=== PATIENT | female | born 1980 | race African-American/Black ===

== ENCOUNTER → 2016-07-12 | Outpatient (CLI) | payer MEDICAID | END | disposition home or self-care (01) | LOC: MW.RT 19:27 | PROVIDERS: ATTEND Family Medicine | DX: G47.30 Sleep apnea, unspecified (principal) | CPT/HCPCS: 95810 ==

== ENCOUNTER → 2016-08-25 | Outpatient (CLI) | payer MEDICAID | LOC: MW.CHOBGYN 13:44 | PROVIDERS: ATTEND Nurse Practitioner Women's Health | DX: R10.2 Pelvic and perineal pain (principal) | CPT/HCPCS: 36415; 81001; 81025; 85025 ==

== ENCOUNTER → 2016-08-28 | Outpatient (CLI) | payer MEDICAID ==
--- NOTE | 2016-08-28 16:35 | US ---
EXAMINATION: Transabdominal and transvaginal pelvic ultrasound HISTORY: Pain COMPARISON: None TECHNIQUE: Grayscale and color Doppler images obtained. FINDINGS: The uterus appears normal in size, contour, and echogenicity without a focal uterine mass. Endometrial stripe measures 6 mm. There are likely a few small fibroids along the posterior aspect of the fundus measuring up to approximately 1.3 cm. Endometrial stripe thickness measures 6 mm. Both the left and right ovaries are normal in size, contour, and echogenicity demonstrating normal c olor and spectral Doppler flow. Small follicles are noted. No adnexal masses. IMPRESSION: 1. Several small fibroids, otherwise unremarkable pelvic ultrasound.
== END ==
LOC: MW.US 11:07
PROVIDERS: ATTEND Nurse Practitioner Women's Health
DX: R10.2 Pelvic and perineal pain (principal); D25.9 Leiomyoma of uterus, unspecified
CPT/HCPCS: 76830; 76830-26

== ENCOUNTER 2016-09-19 17:11 | Emergency (ER) | payer MEDICAID ==
[2016-09-19] MEDS ORDERED: Ketorolac 30 MG/ML SDV IVPUSH ONE (17:59)
[2016-09-19] MEDS ORDERED: Sodium Chloride 0.9% 10 ML Syringe FLUSH PRN (17:59)
[2016-09-19] MEDS ORDERED: Sodium Chloride 0.9% 2.5 ML Syringe FLUSH PRN (17:59)
[2016-09-19] MEDS ORDERED: Sodium Chloride 0.9% 500 ML IV SCH (18:00)
--- NOTE | 2016-09-19 18:04 | EDM.PDOC ---
ED HPI GENERAL MEDICAL PROBLEM - General Chief Complaint: Abdominal Pain Stated Complaint: FIBROID PAIN Time Seen by Provider: 09/19/16 17:17 - History of Present Illness INITIAL COMMENTS - FREE TEXT/NARRATIVE: HISTORY AND PHYSICAL: History of present illness: The patient is a 36-year-old female with a history of hypertension who follows at [facility] and who also has been following with our map plotter Dr. bernabe for fibroids. The patient underwent a myomectomy on April 27 of this year for 1 large fibroid and the patient states that her pelvic pain has been constant both before the surgery and has continued after the surgery and never quite went away. She also states that Dr. Flores had to remove an IUD that was embedded and since that surgery she has been having regular periods with her last period on September 10. She says her periods last 5-7 days and initially are a light flow and then and with a heavy flow but they have been regular and consistent with this team. She is currently not having vaginal bleeding. She states that the pain since last year has been persistent in her pelvic area and although she was told that after the surgery it would improve it has not gone away. She states she has not seen Dr. Bernabe recently and overall was not particularly happy with the care she was given but she does not want to see any of the physicians at [facility]. She has not seen her provider in the clinic, [facility], but she has seen one of the mid level providers in our clinic on August 25 and underwent a pelvic ultrasound on August 28 of this year. Per those results she had normal ovaries normal endometrial stripe and uterus and had several small fibroids measuring up to 1.3 cm along the posterior aspect of the fundus of the uterus. There were no other abnormalities. Patient's been using ibuprofen 800 mg for pain and says it is not improved and that it is in the pelvis and radiates bilaterally into her back as well as to her vagina and rectum. She has discomfort with urination and she has discomfort with sitting. She is having normal bowel movements. She has no upper abdominal pain no flank or back pain and no other systemic complaints such as fever chills nausea or vomiting. Review of systems: As per history of present illness and below otherwise all systems reviewed and negative. Past medical history: As per history of present illness and as reviewed below otherwise noncontributory. Surgical history: As per history of present illness and as reviewed below otherwise noncontributory. Social history: No reported history of drug or alcohol abuse. Family history: As per history of present illness and as reviewed below otherwise noncontributory. Physical exam: Gen.: Well-developed overweight female who is nontoxic and moves easily in the ED but slowly. She looks uncomfortable. Vital signs of the note by me. HEENT: Atraumatic, normocephalic, pupils reactive, negative for conjunctival pallor or scleral icterus, mucous membranes moist, throat clear, neck supple, nontender, trachea midline. Lungs: Clear to auscultation, breath sounds equal bilaterally, chest nontender. Heart: S1S2, regular, negative for clicks, rubs, or JVD. Abdomen: Soft, nondistended, mild tenderness in the mid right left pelvic areas without localization right or left. There is no rebound or guarding and bowel sounds are hypoactive. Negative for masses or hepatosplenomegaly. Negative for costovertebral tenderness. Pelvis: Stable nontender. Genitourinary: Bimanual pelvic exam is difficult due to patient's body habitus and the uterus feels somewhat bulky and rotated to the left but there is no vaginal bleeding and there is tenderness on the abdominal component of this exam. There is no gross adnexal tenderness appreciated. Rectal: Tone is normal and there is no masses or fullness appreciated in the anterior rectal wall adjacent to the vagina. Extremities: Atraumatic, negative for cords or calf pain. Neurovascular unremarkable. Neuro: Awake, alert, oriented. Cranial nerves II through XII unremarkable. Cerebellum unremarkable. Motor and sensory unremarkable throughout. Exam nonfocal. Diagnostics: Patient's pelvic ultrasound from August 28 was reviewed as above CBC CMP UA UCG CT scan of the abdomen and pelvis Therapeutics: Toradol IV fluids Patient states she drove herself here and cannot get a ride so she can receive something stronger in the ED. 2006: Case was discussed with Dr. King who does not feel that this is likely appendicitis in light of the CT scan and my clinical findings. I agree and have discussed this conversation with the patient 2011: Case was discussed with ; he states he is happy to see her in the clinic and I queried him if I should repeat the pelvic ultrasound as the one done on August 28 was 22 days ago to reevaluate the left and right adnexal low- density structures. He states that he would not repeat the ultrasound as it was only done 3 weeks ago and I discussed this conversation with the patient as well. I've advised her to have follow-up with him in his clinic as well as with her primary care provider and I will prescribe pain medications in the interim. Impression: Pelvic pain acute on chronic etiology unclear Definitive disposition and diagnosis as appropriate pending reevaluation and review of above. abdomen Pain Score (Numeric/FACES): 8 - Related Data Allergies Allergy/AdvReac Type Severity Reaction Status Date / Time No Known Allergies Allergy Verified 09/19/16 17:42 Home Meds: Home Meds ClonazePAM [KlonoPIN] 0.5 tab PO BID PRN 12/15/14 [History] Desonide [Desowen] 1 dose TOP ASDIRECTED 04/24/16 [History] Desvenlafaxine Succinate [Pristiq] 100 mg PO DAILY 04/24/16 [History] Hydrocodone/Acetaminophen [Hydrocodon-Acetaminophn 10-325] 1 tab PO ASDIRECTED PRN 04/24/16 [History] Ibuprofen 1 tab PO DAILY 04/24/16 [History] LORazepam 1 tab PO DAILY PRN 04/24/16 [History] Lubiprostone [Amitiza] 1 cap PO BID 04/24/16 [History] Methimazole 1 tab PO DAILY 04/24/16 [History] Propranolol HCl 1 tab PO QID 04/24/16 [History] cloNIDine HCl [Catapres] 0.1 mg PO BID 04/24/16 [History] cloNIDine HCl [Catapres] 1 tab PO DAILY PRN 05/21/16 [History] lamoTRIgine [Lamotrigine] 1 tab PO DAILY 05/21/16 [History] predniSONE [Prednisone] 1 tab PO ASDIRECTED 05/21/16 [History] Past Medical History - Past Health History Medical/Surgical History: Denies Medical/Surgical History Other HEENT History: wears glasses Cardiovascular 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: Hypertension Respiratory 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: None Other Respiratory History: does no use CPAP Gastrointestinal 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: None Genitourinary 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: None SOCIAL SERVICES AIDE 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: None Other OB/BYN History: uterine fibroids Musculoskeletal 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: None Neurological 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: None Psychiatric 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: Anxiety, Depression Endocrine/Metabolic 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: Hyperthyroidism, Obesity/BMI 30+ Other Endocrine/Metabolic History: Graves disease Hematologic 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: None Immunologic 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: None Oncologic (Cancer) 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: None Dermatologic 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: None - Infectious Disease History Infectious Disease 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: Chicken Pox - Past Surgical History Head Surgeries/Procedures: Reports: None HEENT Surgical 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: Tonsillectomy Respiratory Surgical 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: None GI Surgical 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: None Female Surgical 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: Other (See Below) Other Female Surgeries/Procedures: myomectomy Endocrine Surgical 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: None Neurological Surgical 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: None Musculoskeletal Surgical 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: None Oncologic Surgical 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: None Dermatological Surgical 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: None Social & Family History - Family History Family Medical History: Noncontributory Cardiac: Reports: CAD - Tobacco Use Smoking Status *Q: Never Smoker Used Tobacco, but Quit: No Second Hand Smoke Exposure: No - Caffeine Use Caffeine Use: Reports: Soda - Recreational Drug Use Recreational Drug Use: No Drug Use in Last 12 Months: No ED ROS GENERAL - Review of Systems Review Of Systems: ROS reveals no pertinent complaints other than HPI. ED EXAM, GENERAL - Physical Exam Exam: See Below (See dictation) Course - Vital Signs Last Recorded V/S: Last Vital Signs Temp 37.1 C 09/19/16 19:28 Pulse 69 09/19/16 19:28 Resp 16 09/19/16 19:28 BP 137/80 09/19/16 19:28 Pulse Ox 98 09/19/16 19:28 - Orders/Labs/Meds Orders: Active Orders 24 hr Category Date Time Status Abdomen Pelvis w Cont [CT] Stat Exams 09/19/16 17:59 Taken Sodium Chloride 0.9% [Normal Saline] 500 ml Med 09/19/16 18:00 Active IV STAT Sodium Chloride 0.9% [Saline Flush] Med 09/19/16 17:59 Active 10 ml FLUSH ASDIRECTED PRN Sodium Chloride 0.9% [Saline Flush] Med 09/19/16 17:59 Active 2.5 ml FLUSH ASDIRECTED PRN Saline Lock Insert [OM.PC] Stat Oth 09/19/16 17:59 Ordered Medication Orders Sodium Chloride (Normal Saline) 500 mls @ 999 mls/hr IV STAT ESTEVAN Last Admin: 09/19/16 18:10 Dose: 999 mls/hr Sodium Chloride (Saline Flush) 10 ml FLUSH ASDIRECTED PRN PRN Reason: Keep Vein Open Last Admin: 09/19/16 18:11 Dose: 10 ml Sodium Chloride (Saline Flush) 2.5 ml FLUSH ASDIRECTED PRN PRN Reason: Keep Vein Open Last Admin: 09/19/16 18:11 Dose: 2.5 ml Labs: Laboratory Tests 09/19/16 09/19/16 09/19/16 Range/Units 17:54 17:54 18:06 WBC 16.49 H (4.0-11.0) K/uL RBC 4.43 (4.30-5.90) M/uL Hgb 12.6 (12.0-16.0) g/dL Hct 37.5 (36.0-46.0) % MCV 84.7 (80.0-98.0) fL MCH 28.4 (27.0-32.0) pg MCHC 33.6 (31.0-37.0) g/dL RDW Std Deviation 44.5 (28.0-62.0) fl RDW Coeff of Eduardo 14 (11.0-15.0) % Plt Count 377 (150-400) K/uL MPV 9.70 (7.40-12.00) fL Neut % (Auto) 66.5 (48.0-80.0) % Lymph % (Auto) 26.4 (16.0-40.0) % Stevens % (Auto) 6.5 (0.0-15.0) % Eos % (Auto) 0.5 (0.0-7.0) % Baso % (Auto) 0.1 (0.0-1.5) % Neut # (Auto) 11.0 H (1.4-5.7) K/uL Lymph # (Auto) 4.4 H (0.6-2.4) K/uL Stevens # (Auto) 1.1 H (0.0-0.8) K/uL Eos # (Auto) 0.1 (0.0-0.7) K/uL Baso # (Auto) 0.0 (0.0-0.1) K/uL Nucleated RBC % 0.0 /100WBC Nucleated RBCs # 0 K/uL Sodium (136-146) mmol/L Potassium (3.5-5.1) mmol/L Chloride (98-110) mmol/L Carbon Dioxide (21-31) mmol/L BUN (6.0-23.0) mg/dL Creatinine (0.6-1.5) mg/dL Est Cr Clr Drug Dosing mL/min Estimated GFR (MDRD) ml/min Glucose (60-110) mg/dL Calcium (8.8-10.8) mg/dL Total Bilirubin (0.1-1.5) mg/dL AST (5-40) IU/L ALT (8-54) IU/L Alkaline Phosphatase (40-150) Total Protein (6.0-8.0) g/dL Albumin (3.5-5.0) g/dL Globulin (2.0-3.5) g/dL Albumin/Globulin Ratio (1.3-2.8) Urine Color YELLOW Urine Appearance CLEAR Urine pH 5.5 (5.0-8.0) Ur Specific Blakeslee 1.025 (1.001-1.035) Urine Protein NEGATIVE (NEGATIVE) mg/dL Urine Glucose (UA) NEGATIVE (NEGATIVE) mg/dL Urine Ketones NEGATIVE (NEGATIVE) mg/dL Urine Occult Blood NEGATIVE (NEGATIVE) Urine Nitrite NEGATIVE (NEGATIVE) Urine Bilirubin NEGATIVE (NEGATIVE) Urine Urobilinogen 0.2 (<2.0) EU/dL Ur Leukocyte Esterase NEGATIVE (NEGATIVE) Urine RBC 0-1 (0-2/HPF) Urine WBC 0-2 (0-5/HPF) Ur Epithelial Cells FEW (NONE-FEW) Urine Bacteria FEW (NEGATIVE) Urine HCG, Qual NEGATIVE (NEGATIVE) 09/19/16 Range/Units 18:06 WBC (4.0-11.0) K/uL RBC (4.30-5.90) M/uL Hgb (12.0-16.0) g/dL Hct (36.0-46.0) % MCV (80.0-98.0) fL MCH (27.0-32.0) pg MCHC (31.0-37.0) g/dL RDW Std Deviation (28.0-62.0) fl RDW Coeff of Eduardo (11.0-15.0) % Plt Count (150-400) K/uL MPV (7.40-12.00) fL Neut % (Auto) (48.0-80.0) % Lymph % (Auto) (16.0-40.0) % Stevens % (Auto) (0.0-15.0) % Eos % (Auto) (0.0-7.0) % Baso % (Auto) (0.0-1.5) % Neut # (Auto) (1.4-5.7) K/uL Lymph # (Auto) (0.6-2.4) K/uL Stevens # (Auto) (0.0-0.8) K/uL Eos # (Auto) (0.0-0.7) K/uL Baso # (Auto) (0.0-0.1) K/uL Nucleated RBC % /100WBC Nucleated RBCs # K/uL Sodium 138 (136-146) mmol/L Potassium 4.0 (3.5-5.1) mmol/L Chloride 109 (98-110) mmol/L Carbon Dioxide 19 L (21-31) mmol/L BUN 11 (6.0-23.0) mg/dL Creatinine 0.7 (0.6-1.5) mg/dL Est Cr Clr Drug Dosing 117.23 mL/min Estimated GFR (MDRD) > 60.0 ml/min Glucose 86 (60-110) mg/dL Calcium 8.6 L (8.8-10.8) mg/dL Total Bilirubin 0.6 (0.1-1.5) mg/dL AST 13 (5-40) IU/L ALT 11 (8-54) IU/L Alkaline Phosphatase 77 (40-150) Total Protein 7.8 (6.0-8.0) g/dL Albumin 4.3 (3.5-5.0) g/dL Globulin 3.5 (2.0-3.5) g/dL Albumin/Globulin Ratio 1.2 L (1.3-2.8) Urine Color Urine Appearance Urine pH (5.0-8.0) Ur Specific Blakeslee (1.001-1.035) Urine Protein (NEGATIVE) mg/dL Urine Glucose (UA) (NEGATIVE) mg/dL Urine Ketones (NEGATIVE) mg/dL Urine Occult Blood (NEGATIVE) Urine Nitrite (NEGATIVE) Urine Bilirubin (NEGATIVE) Urine Urobilinogen (<2.0) EU/dL Ur Leukocyte Esterase (NEGATIVE) Urine RBC (0-2/HPF) Urine WBC (0-5/HPF) Ur Epithelial Cells (NONE-FEW) Urine Bacteria (NEGATIVE) Urine HCG, Qual (NEGATIVE) Meds: Medications Generic Name Dose Route Start Last Admin Trade Name Freq PRN Reason Stop Dose Admin Sodium Chloride 500 mls @ 999 mls/hr 09/19/16 18:00 09/19/16 18:10 Normal Saline IV 999 mls/hr STAT ESTEVAN Administration Sodium Chloride 10 ml 09/19/16 17:59 09/19/16 18:11 Saline Flush FLUSH 10 ml ASDIRECTED PRN Administration Keep Vein Open Sodium Chloride 2.5 ml 09/19/16 17:59 09/19/16 18:11 Saline Flush FLUSH 2.5 ml ASDIRECTED PRN Administration Keep Vein Open Discontinued Medications Generic Name Dose Route Start Last Admin Trade Name Freq PRN Reason Stop Dose Admin Iopamidol 100 ml 09/19/16 18:40 Isovue Multipack-370 (76%) IVPUSH 09/19/16 18:41 ONETIME STA Ketorolac Tromethamine 30 mg 09/19/16 17:59 09/19/16 18:10 Toradol IVPUSH 09/19/16 18:00 30 mg ONETIME ONE Administration Departure - Departure Time of Disposition: 20:34 Disposition: Home, Self-Care 01 Condition: Fair Clinical Impression: Pelvic pain - Discharge Information Referrals: Danuta Long DO [Primary Care Provider] - Forms: ED Department Discharge Additional Instructions: The following information is given to patients seen in the emergency department who are being discharged to home. This information is to outline your options for follow-up care. We provide all patients seen in our emergency department with a follow-up referral. The need for follow-up, as well as the timing and circumstances, are variable depending upon the specifics of your emergency department visit. If you don't have a primary care physician on staff, we will provide you with a referral. We always advise you to contact your personal physician following an emergency department visit to inform them of the circumstance of the visit and for follow-up with them and/or the need for any referrals to a consulting specialist. The emergency department will also refer you to a specialist when appropriate. This referral assures that you have the opportunity for followup care with a specialist. All of these measure are taken in an effort to provide you with optimal care, which includes your followup. Under all circumstances we always encourage you to contact your private physician who remains a resource for coordinating your care. When calling for followup care, please make the office aware that this follow-up is from your recent emergency room visit. If for any reason you are refused follow-up, please contact the [facility] emergency department at and ask to speak to the emergency department charge nurse. [facility] [address] [place] [address] [facility] [address] [place] [address] [place], [place] [id number] Please call and follow-up with in his clinic as we discussed and continue with your ibuprofen that you have and add new prescription for pain medication to be used as needed. Please also follow up with your provider at [facility] as we discussed. Return to ER as needed and as discussed - My Orders Last 24 Hours: My Active Orders 09/19/16 17:59 Abdomen Pelvis w Cont [CT] Stat Sodium Chloride 0.9% [Saline Flush] 10 ml FLUSH ASDIRECTED PRN Sodium Chloride 0.9% [Saline Flush] 2.5 ml FLUSH ASDIRECTED PRN Saline Lock Insert [OM.PC] Stat 09/19/16 18:00 Sodium Chloride 0.9% [Normal Saline] 500 ml IV STAT - Assessment/Plan Last 24 Hours: My Active Orders 09/19/16 17:59 Abdomen Pelvis w Cont [CT] Stat Sodium Chloride 0.9% [Saline Flush] 10 ml FLUSH ASDIRECTED PRN Sodium Chloride 0.9% [Saline Flush] 2.5 ml FLUSH ASDIRECTED PRN Saline Lock Insert [OM.PC] Stat 09/19/16 18:00 Sodium Chloride 0.9% [Normal Saline] 500 ml IV STAT
[2016-09-19 18:35] LABS: CHLORIDE,CL 109 mmol/L (98-110); SODIUM,NA 138 mmol/L (136-146)
[2016-09-19] MEDS ORDERED: Iopamidol 755 MG/ML 500 ML Multipack Bottle IVPUSH STA (18:40)
[2016-09-19 22:34] VITALS: BP 153/113
--- NOTE | 2016-09-20 10:31 | CT ---
EXAM DATE: 09/19/16 PATIENT'S AGE: 36 Patient: RAISA SANTOS Facility: [place], [place] Site . Site : 1980 Study: CT Abdomen/Pelvis [id number]/13/2017 7:14:08 PM Ordering Physician: Aurelio Venegas Final Report: INDICATION: Lower abdominal pain TECHNIQUE: CT abdomen and pelvis acquired with IV contrast. COMPARISON: None available FINDINGS: Lower chest: Unremarkable. Liver: Unremarkable. Spleen: Unremarkable. Pancreas: Unremarkable. Gallbladder and bile ducts: Unremarkable. Adrenal glands: Unremarkable. Kidneys: Unremarkable. GI tract: No bowel obstruction. The mid appendix is upper limits of normal in caliber, containing a luminal density, however the more distal appendix is normal in caliber and there are no significant periappendiceal changes to suggest appendicitis. Foci of intramural fat attenuation in the ascending colon , terminal ileum and rectal wall can be seen as sequelae of chronic inflammation , without significant bowel wall thickening appreciated at this time. Liquid stool within colonic segments suggestive of a diarrheal illness. Vascular structures: Unremarkable. Lymph nodes: Unremarkable. Miscellaneous: Possible trace fluid in the cul-de-sac. No free air. Pelvic Organs: No discrete ureteral or bladder abnormality seen. A 2.1 x 1.8 centimeter left adnexal, and a 1.8 x 1.8 centimeter right adnexal, low-density structures. Bones: Unremarkable for age. IMPRESSION: Borderline prominence of the mid appendix is likely related to luminal debris without definite findings of appendicitis. No evidence of diverticulitis or bowel obstruction. Liquid stool within colonic segments suggestive of a diarrheal illness. Correlate for enteritis. Adnexal low-density structures. Correlate with sonography. Dictated by Nicolás Weaver MD @ 09/19/2016 8:01:14 PM Dictated by: Nicolás Weaver MD @ 09/19/2016 20:01:18 (Electronic Signature) Report Signed by Proxy. CURTIS
== END 2016-09-19 20:50 | disposition home or self-care (01) ==
LOC: MW.ED 17:11
DX: R10.2 Pelvic and perineal pain (principal); I10 Essential (primary) hypertension; F41.9 Anxiety disorder, unspecified; F32.9 Major depressive disorder, single episode, unspecified; E66.9 Obesity, unspecified; E05.90 Thyrotoxicosis, unspecified without thyrotoxic crisis or storm; Z98.890 Other specified postprocedural states; Z79.899 Other long term (current) drug therapy
CPT/HCPCS: 36415; 74177; 80053; 81001; 81025; 85025; 96361; 99284; J1885; J7040; 96374

== ENCOUNTER 2017-02-22 17:31 | Emergency (ER) | payer MEDICAID ==
[2017-02-22 18:24] VITALS: BP 113/73
[2017-02-22] MEDS ORDERED: LORazepam 2 MG/ML SDV IVPUSH ONE (19:01)
[2017-02-22] MEDS ORDERED: Sodium Chloride 0.9% 1,000 ML IV ONE (19:01)
[2017-02-22] MEDS ORDERED: Ondansetron 4 MG/2 ML SDV IVPUSH ONE (19:01)
[2017-02-22] MEDS ORDERED: SUMAtriptan 6 MG/0.5 ML SDV SUBCUT ONE (19:02)
[2017-02-22] MEDS ORDERED: Ketorolac 30 MG/ML SDV IVPUSH ONE (19:12)
--- NOTE | 2017-02-22 19:12 | EDM.PDOC ---
<Chris Lino - Last Filed: 02/22/17 20:00> ED HPI GENERAL MEDICAL PROBLEM - General Chief Complaint: Headache Stated Complaint: MIGRAINE Time Seen by Provider: 02/22/17 19:00 Source of Information: Reports: Patient History Limitations: Reports: No Limitations - History of Present Illness INITIAL COMMENTS - FREE TEXT/NARRATIVE: History of present illness: [36-year-old female comes in complaining of migraine headache. Patient indicates that she has had a history of migraine but they're sporadic and infrequent and is been well since she had one area patient in case this is one of the bad ones but not before she is ever had.] Review of systems: As per history of present illness and below otherwise all systems reviewed and negative. Past medical history: As per history of present illness and as reviewed below otherwise noncontributory. Surgical history: As per history of present illness and as reviewed below otherwise noncontributory. Social history: No reported history of drug or alcohol abuse. Family history: As per history of present illness and as reviewed below otherwise noncontributory. Physical exam: HEENT: Atraumatic, normocephalic, pupils reactive, negative for conjunctival pallor or scleral icterus, mucous membranes moist, throat clear, neck supple, nontender, trachea midline. Lungs: Clear to auscultation, breath sounds equal bilaterally, chest nontender. Heart: S1S2, regular, negative for clicks, rubs, or JVD. Abdomen: Soft, nondistended, nontender. Negative for masses or hepatosplenomegaly. Negative for costovertebral tenderness. Pelvis: Stable nontender. Genitourinary: Deferred. Rectal: Deferred. Extremities: Atraumatic, negative for cords or calf pain. Neurovascular unremarkable. Neuro: Awake, alert, oriented. Cranial nerves II through XII unremarkable. Cerebellum unremarkable. Motor and sensory unremarkable throughout. Exam nonfocal. Patient eloped Diagnostics: [] Therapeutics: [IV fluid, Ativan,] Impression: [Migraine headache] Plan: [Patient eloped] Definitive disposition and diagnosis as appropriate pending reevaluation and review of above. Headache Pain Score (Numeric/FACES): 10 - Related Data Allergies Allergy/AdvReac Type Severity Reaction Status Date / Time acetaminophen [From Percocet] Allergy Hives Verified 02/22/17 18:12 oxycodone [From Percocet] Allergy Hives Verified 02/22/17 18:12 tylenol #4 Allergy Hives Uncoded 02/22/17 18:12 Home Meds: Home Meds ClonazePAM [KlonoPIN] 0.5 tab PO BID PRN 12/15/14 [History] Desonide [Desowen] 1 dose TOP ASDIRECTED 04/24/16 [History] Desvenlafaxine Succinate [Pristiq] 100 mg PO DAILY 04/24/16 [History] Hydrocodone/Acetaminophen [Hydrocodon-Acetaminophn 10-325] 1 tab PO ASDIRECTED PRN 04/24/16 [History] Ibuprofen 1 tab PO DAILY 04/24/16 [History] Lubiprostone [Amitiza] 1 cap PO BID 04/24/16 [History] Methimazole 1 tab PO DAILY 04/24/16 [History] Propranolol HCl 1 tab PO QID 04/24/16 [History] cloNIDine HCl [Catapres] 0.1 mg PO BID 04/24/16 [History] cloNIDine HCl [Catapres] 1 tab PO DAILY PRN 05/21/16 [History] Past Medical History - Past Health History Medical/Surgical History: Denies Medical/Surgical History Other HEENT History: wears glasses Cardiovascular 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: Hypertension Respiratory 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: None Other Respiratory History: does no use CPAP Gastrointestinal 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: None Genitourinary 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: None 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 Other OB/BYN History: uterine fibroids Musculoskeletal 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: None Neurological 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: None Psychiatric 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: Anxiety, Depression Endocrine/Metabolic 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: Hyperthyroidism, Obesity/BMI 30+ Other Endocrine/Metabolic History: Graves disease Hematologic 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: None Immunologic 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: None Oncologic (Cancer) 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: None Dermatologic 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: None - Infectious Disease History Infectious Disease 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: Chicken Pox - Past Surgical History Head Surgeries/Procedures: Reports: None HEENT Surgical 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: Tonsillectomy Respiratory Surgical 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: None GI Surgical 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: None Female Surgical 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: Other (See Below) Other Female Surgeries/Procedures: myomectomy Endocrine Surgical 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: None Neurological Surgical 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: None Musculoskeletal Surgical 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: None Oncologic Surgical 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: None Dermatological Surgical 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: None Social & Family History - Family History Family Medical History: Noncontributory Cardiac: Reports: CAD - Tobacco Use Smoking Status *Q: Never Smoker Used Tobacco, but Quit: No Second Hand Smoke Exposure: No - Caffeine Use Caffeine Use: Reports: None - Recreational Drug Use Recreational Drug Use: No Drug Use in Last 12 Months: No ED ROS GENERAL - Review of Systems Review Of Systems: See Below (See history of present illness) ED EXAM, GENERAL - Physical Exam Exam: See Below (See history of present illness) Course - Vital Signs Last Recorded V/S: Last Vital Signs Temp 36.3 C 02/22/17 18:21 Pulse 74 02/22/17 18:21 Resp 18 02/22/17 18:21 BP 113/73 02/22/17 18:21 Pulse Ox 97 02/22/17 18:21 - Orders/Labs/Meds Meds: Medications Discontinued Medications Generic Name Dose Route Start Last Admin Trade Name Freq PRN Reason Stop Dose Admin Sodium Chloride 1,000 mls @ 999 mls/hr 02/22/17 19:01 Normal Saline IV 02/22/17 20:01 STAT ONE Ketorolac Tromethamine 30 mg 02/22/17 19:12 Toradol IVPUSH 02/22/17 19:13 ONETIME ONE Lorazepam 1 mg 02/22/17 19:01 Ativan IVPUSH 02/22/17 19:02 ONETIME ONE Ondansetron HCl 8 mg 02/22/17 19:01 Zofran IVPUSH 02/22/17 19:02 ONETIME ONE Sumatriptan Succinate 6 mg 02/22/17 19:02 Imitrex SUBCUT 02/22/17 19:03 ONETIME ONE Departure - Departure Time of Disposition: 20:00 Disposition: Eloped 07 Condition: Good Clinical Impression: Migraine - Discharge Information Referrals: PCP,None [Primary Care Provider] - Forms: ED Department Discharge <Rubi Carey - Last Filed: 02/23/17 00:50> ED HPI GENERAL MEDICAL PROBLEM - History of Present Illness INITIAL COMMENTS - FREE TEXT/NARRATIVE: Please note that the patient eloped prior to getting any of the therapeutics listed above as well as other medications that were ordered.
== END 2017-02-22 20:00 | disposition left against medical advice (07) ==
LOC: MW.ED 17:31
DX: G43.909 Migraine, unspecified, not intractable, without status migrainosus (principal); I10 Essential (primary) hypertension; F32.9 Major depressive disorder, single episode, unspecified; E05.90 Thyrotoxicosis, unspecified without thyrotoxic crisis or storm; Z79.1 Long term (current) use of non-steroidal anti-inflammatories (NSAID); Z79.899 Other long term (current) drug therapy; Z88.6 Allergy status to analgesic agent
CPT/HCPCS: 99282; 99283

== ENCOUNTER 2017-02-27 14:34 | Emergency (ER) | payer MEDICAID ==
--- NOTE | 2017-02-27 16:29 | EDM.PDOC ---
ED HPI GENERAL MEDICAL PROBLEM - General Chief Complaint: General Stated Complaint: PAIN RT SIDE HEAD/HEADACHE/NAUSEA/UPSAT STOMACH Time Seen by Provider: 02/27/17 16:28 Source of Information: Reports: Patient History Limitations: Reports: No Limitations - History of Present Illness INITIAL COMMENTS - FREE TEXT/NARRATIVE: HISTORY AND PHYSICAL: []36-year-old black female presenting with right ear pain for the last month History of Present Illness: []Pain has worsened over the last month she has the pain down her jaw line now has headache Complaining of pain to her right arm Review of Systems: As per history of present illness and below otherwise all systems reviewed and negative. Past medical history: As per history of present illness and as reviewed below otherwise noncontributory. Surgical history: As per history of present illness and as reviewed below otherwise noncontributory. Social history: No reported history of drug or alcohol abuse. Family history: As per history of present illness and as reviewed below otherwise noncontributory. Physical exam: HEENT: Atraumatic, normocehpalic, pupils reactive, negative for conjunctival pallor or scleral icterus, mucous membranes moist, throat clear, neck supple, nontender, trachea midline. Lungs: Clear to auscultation, breath sounds equal bilaterally, chest non tender. Heart: S1S2, regular, negative for clicks, rubs, or JVD. Abdomen: Soft, nondistended, nontender. Negative for masses or hepatossplenmegaly. Negative for costovertebral tenderness. Pelvis: Stable nontender. Genitourinary: Deferred. Rectal: Deferred Extremities: Atraumatic, negative for cords or calf pain. Neurovascular unremarkable. Neuro: Awake, alert, oriented. Cranial nerves II through XII unremarkable. Cerebellum unremarkable. Motor and sensory unremarkable throughout. Exam nonfocal. Diagnostics: []CBC CMP Therapeutics: [] Impression: [Right otitis media] Plan: []Discharged to home Augmentin 875 twice a day 7 days Follow-up with your primary care provider for reevaluation once medicine has been completed Definitive disposition and diagnosis as appropriate pending reevaluation and review of above. Duration: Day(s): Location: Reports: Head Right Head down to Right Abdomen Pain Score (Numeric/FACES): 10 - Related Data Allergies Allergy/AdvReac Type Severity Reaction Status Date / Time acetaminophen [From Percocet] Allergy Hives Verified 11/21/17 14:58 oxycodone [From Percocet] Allergy Hives Verified 02/27/17 14:58 tylenol #4 Allergy Hives Uncoded 02/27/17 14:58 Home Meds: Home Meds ClonazePAM [KlonoPIN] 0.5 tab PO BID PRN 12/15/14 [History] Desonide [Desowen] 1 dose TOP ASDIRECTED 04/24/16 [History] Desvenlafaxine Succinate [Pristiq] 100 mg PO DAILY 04/24/16 [History] Hydrocodone/Acetaminophen [Hydrocodon-Acetaminophn 10-325] 1 tab PO ASDIRECTED PRN 04/24/16 [History] Lubiprostone [Amitiza] 1 cap PO BID 04/24/16 [History] Methimazole 0.5 tab PO ASDIRECTED 04/24/16 [History] Propranolol HCl 1 tab PO QID 04/24/16 [History] cloNIDine HCl [Catapres] 0.1 mg PO BID 04/24/16 [History] cloNIDine HCl [Catapres] 1 tab PO DAILY 05/21/16 [History] Amoxicillin/Potassium Clav [Augmentin 875-125 Tablet] 1 each PO BID #14 tablet 02/27/17 [Rx] Furosemide 02/27/17 [History] hydrALAZINE [Apresoline] 25 mg PO QID 02/27/17 [History] Past Medical History - Past Health History Medical/Surgical History: Denies Medical/Surgical History Other HEENT History: wears glasses Cardiovascular 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: Hypertension Respiratory 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: None Other Respiratory History: does no use CPAP Gastrointestinal 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: None Genitourinary 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: None 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 Other OB/BYN History: uterine fibroids Musculoskeletal 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: None Neurological 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: None Psychiatric 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: Anxiety, Depression Endocrine/Metabolic 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: Hyperthyroidism, Obesity/BMI 30+ Other Endocrine/Metabolic History: Graves disease Hematologic 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: None Immunologic 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: None Oncologic (Cancer) 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: None Dermatologic 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: None - Infectious Disease History Infectious Disease 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: Chicken Pox - Past Surgical History Head Surgeries/Procedures: Reports: None HEENT Surgical 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: Tonsillectomy Respiratory Surgical 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: None GI Surgical 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: None Female Surgical 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: Other (See Below) Other Female Surgeries/Procedures: myomectomy Endocrine Surgical 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: None Neurological Surgical 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: None Musculoskeletal Surgical 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: None Oncologic Surgical 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: None Dermatological Surgical 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: None Social & Family History - Family History Family Medical History: Noncontributory Cardiac: Reports: CAD Endocrine/Metabolic: Reports: Diabetes, Type I - Tobacco Use Smoking Status *Q: Never Smoker Used Tobacco, but Quit: No Second Hand Smoke Exposure: No - Caffeine Use Caffeine Use: Reports: None - Recreational Drug Use Recreational Drug Use: No Drug Use in Last 12 Months: No ED ROS GENERAL - Review of Systems Review Of Systems: ROS reveals no pertinent complaints other than HPI. ED EXAM, GENERAL - Physical Exam Exam: See Below (See dictation) Course - Vital Signs Last Recorded V/S: Last Vital Signs Temp 36.8 C 02/27/17 14:53 Pulse 83 02/27/17 14:53 Resp 20 02/27/17 14:53 BP 144/88 H 02/27/17 14:53 Pulse Ox 97 02/27/17 14:53 - Orders/Labs/Meds Orders: Active Orders 24 hr Category Date Time Status EKG Documentation Completion [RC] STAT Care 02/27/17 16:37 Active Sodium Chloride 0.9% [Saline Flush] Med 02/27/17 16:37 Active 10 ml FLUSH ASDIRECTED PRN Sodium Chloride 0.9% [Saline Flush] Med 02/27/17 16:37 Active 2.5 ml FLUSH ASDIRECTED PRN Saline Lock Insert [OM.PC] Stat Oth 02/27/17 16:37 Ordered Medication Orders Sodium Chloride (Saline Flush) 10 ml FLUSH ASDIRECTED PRN PRN Reason: Keep Vein Open Last Admin: 02/27/17 16:55 Dose: 10 ml Sodium Chloride (Saline Flush) 2.5 ml FLUSH ASDIRECTED PRN PRN Reason: Keep Vein Open Last Admin: 02/27/17 16:58 Dose: 2.5 ml Labs: Laboratory Tests 02/27/17 02/27/17 02/27/17 Range/Units 16:52 16:52 17:15 WBC 11.71 H (4.0-11.0) K/uL RBC 4.41 (4.30-5.90) M/uL Hgb 12.6 (12.0-16.0) g/dL Hct 37.9 (36.0-46.0) % MCV 85.9 (80.0-98.0) fL MCH 28.6 (27.0-32.0) pg MCHC 33.2 (31.0-37.0) g/dL RDW Std Deviation 42.8 (28.0-62.0) fl RDW Coeff of Eduardo 14 (11.0-15.0) % Plt Count 325 (150-400) K/uL MPV 9.80 (7.40-12.00) fL Add Manual Diff YES Neutrophils % (Manual) 58 (48.0-80.0) % Band Neutrophils % 1 % Lymphocytes % (Manual) 35 (16.0-40.0) % Monocytes % (Manual) 4 (0.0-15.0) % Eosinophils % (Manual) 2 (0.0-7.0) % Nucleated RBC % 0.0 /100WBC Absolute Seg Neuts 6.8 H (1.4-5.7) Band Neutrophils # 0.1 Lymphocytes # (Manual) 4.1 H (0.6-2.4) Monocytes # (Manual) 0.5 (0.0-0.8) Eosinophils # (Manual) 0.2 (0.0-0.7) Nucleated RBCs # 0 K/uL Sodium 136 (136-146) mmol/L Potassium 4.3 (3.5-5.1) mmol/L Chloride 105 (98-110) mmol/L Carbon Dioxide 22 (21-31) mmol/L BUN 11 (6.0-23.0) mg/dL Creatinine 0.8 (0.6-1.5) mg/dL Est Cr Clr Drug Dosing 99.01 mL/min Estimated GFR (MDRD) > 60.0 ml/min Glucose 111 H (60-110) mg/dL Calcium 9.3 (8.8-10.8) mg/dL Total Bilirubin 0.4 (0.1-1.5) mg/dL AST 16 (5-40) IU/L ALT 14 (8-54) IU/L Alkaline Phosphatase 82 (40-150) Total Protein 8.0 (6.0-8.0) g/dL Albumin 4.1 (3.5-5.0) g/dL Globulin 3.9 H (2.0-3.5) g/dL Albumin/Globulin Ratio 1.1 L (1.3-2.8) Urine Color YELLOW Urine Appearance CLEAR Urine pH 6.0 (5.0-8.0) Ur Specific [place] 1.015 (1.001-1.035) Urine Protein NEGATIVE (NEGATIVE) mg/dL Urine Glucose (UA) NEGATIVE (NEGATIVE) mg/dL Urine Ketones NEGATIVE (NEGATIVE) mg/dL Urine Occult Blood NEGATIVE (NEGATIVE) Urine Nitrite NEGATIVE (NEGATIVE) Urine Bilirubin NEGATIVE (NEGATIVE) Urine Urobilinogen 0.2 (<2.0) EU/dL Ur Leukocyte Esterase NEGATIVE (NEGATIVE) Urine RBC 0-2 (0-2/HPF) Urine WBC 0-1 (0-5/HPF) Ur Epithelial Cells MODERATE (NONE-FEW) Amorphous Sediment FEW (NEGATIVE) Urine Bacteria FEW (NEGATIVE) Meds: Medications Generic Name Dose Route Start Last Admin Trade Name Freq PRN Reason Stop Dose Admin Sodium Chloride 10 ml 02/27/17 16:37 02/27/17 16:55 Saline Flush FLUSH 10 ml ASDIRECTED PRN Administration Keep Vein Open Sodium Chloride 2.5 ml 02/27/17 16:37 02/27/17 16:58 Saline Flush FLUSH 2.5 ml ASDIRECTED PRN Administration Keep Vein Open Departure - Departure Time of Disposition: 17:42 Disposition: Home, Self-Care 01 Condition: Good Clinical Impression: Right otitis media with effusion - Discharge Information Prescriptions: Amoxicillin/Potassium Clav [Augmentin 875-125 Tablet] 1 each PO BID #14 tablet Referrals: Danuta Long DO [Primary Care Provider] - Forms: ED Department Discharge Additional Instructions: The following information is given to patients seen in the emergency department who are being discharged to home. This information is to outline your options for follow-up care. We provide all patients seen in our emergency department with a follow-up referral. The need for follow-up, as well as the timing and circumstances, are variable depending upon the specifics of your emergency department visit. If you don't have a primary care physician on staff, we will provide you with a referral. We always advise you to contact your personal physician following an emergency department visit to inform them of the circumstance of the visit and for follow-up with them and/or the need for any referrals to a consulting specialist. The emergency department will also refer you to a specialist when appropriate. This referral assures that you have the opportunity for followup care with a specialist. All of these measure are taken in an effort to provide you with optimal care, which includes your followup. Under all circumstances we always encourage you to contact your private physician who remains a resource for coordinating your care. When calling for followup care, please make the office aware that this follow-up is from your recent emergency room visit. If for any reason you are refused follow-up, please contact the [facility] emergency department at and asked to speak to the emergency department charge nurse. Follow-up with your primary care in 1 week Prescription has been electronically sent to your pharmacy for Augmentin 875 mg 1 tablet twice a day 7 days - My Orders Last 24 Hours: My Active Orders 02/27/17 16:37 EKG Documentation Completion [RC] STAT Sodium Chloride 0.9% [Saline Flush] 10 ml FLUSH ASDIRECTED PRN Sodium Chloride 0.9% [Saline Flush] 2.5 ml FLUSH ASDIRECTED PRN Saline Lock Insert [OM.PC] Stat - Assessment/Plan Last 24 Hours: My Active Orders 02/27/17 16:37 EKG Documentation Completion [RC] STAT Sodium Chloride 0.9% [Saline Flush] 10 ml FLUSH ASDIRECTED PRN Sodium Chloride 0.9% [Saline Flush] 2.5 ml FLUSH ASDIRECTED PRN Saline Lock Insert [OM.PC] Stat
[2017-02-27] MEDS ORDERED: Sodium Chloride 0.9% 10 ML Syringe FLUSH PRN (16:37)
[2017-02-27] MEDS ORDERED: Sodium Chloride 0.9% 2.5 ML Syringe FLUSH PRN (16:37)
[2017-02-27 17:28] LABS: CHLORIDE,CL 105 mmol/L (98-110); SODIUM,NA 136 mmol/L (136-146)
[2017-02-27 18:00] VITALS: BP 152/99
== END 2017-02-27 18:00 | disposition home or self-care (01) ==
LOC: MW.ED 14:34
DX: H65.91 Unspecified nonsuppurative otitis media, right ear (principal); I10 Essential (primary) hypertension; F32.9 Major depressive disorder, single episode, unspecified; Z79.899 Other long term (current) drug therapy; Z88.6 Allergy status to analgesic agent
CPT/HCPCS: 36415; 80053; 81001; 85025; 93005; 99283; 99284-25

== ENCOUNTER 2018-01-12 17:48 | Emergency (ER) | payer BC, MEDICAID ==
--- NOTE | 2018-01-12 18:27 | EDM.PDOC ---
ED HPI GENERAL MEDICAL PROBLEM - General Chief Complaint: General Stated Complaint: TEETH AND GUM PAIN Time Seen by Provider: 01/12/18 17:55 Source of Information: Reports: Patient History Limitations: Reports: No Limitations - History of Present Illness INITIAL COMMENTS - FREE TEXT/NARRATIVE: History of present illness: []Patient had 2 dental caries repairs on December 11 and now presents with pain across her teeth upper and lower without common pain. Denies any fevers, chills , trauma, drainage from her gums, facial swelling or change in her bite. Review of systems: As per history of present illness and below otherwise all systems reviewed and negative. Past medical history: As per history of present illness and as reviewed below otherwise noncontributory. Surgical history: As per history of present illness and as reviewed below otherwise noncontributory. Social history: No reported history of drug or alcohol abuse. Family history: As per history of present illness and as reviewed below otherwise noncontributory. Physical exam: General: Well developed, well nourished in NAD HEENT: Atraumatic, normocephalic, pupils reactive, negative for conjunctival pallor or scleral icterus, mucous membranes moist, throat clear, neck supple, nontender, trachea midline. No gingival erythema or edema, no obvious dental caries, no malocclusion no facial swelling Lungs: Clear to auscultation, breath sounds equal bilaterally, chest nontender. Heart: S1S2, regular, negative for clicks, rubs, or JVD. Abdomen: Soft, nondistended, nontender. Negative for masses or hepatosplenomegaly. Negative for costovertebral tenderness. Pelvis: Stable nontender. Genitourinary: Deferred. Rectal: Deferred. Extremities: Atraumatic, negative for cords or calf pain. Neurovascular unremarkable. Neuro: Awake, alert, oriented. Cranial nerves II through XII unremarkable. Cerebellum unremarkable. Motor and sensory unremarkable throughout. Exam nonfocal. Skin:warm and dry Diagnostics: None Therapeutics: None ED Course: Unremarkable Impression: Whole mouth dental pain Prescriptions: None Plan: Follow-up with dentist. Definitive disposition and diagnosis as appropriate pending reevaluation and review of above. Tooth/Teeth Pain Score (Numeric/FACES): 8 - Related Data Allergies Allergy/AdvReac Type Severity Reaction Status Date / Time acetaminophen [From Percocet] Allergy Hives Verified 01/12/18 18:06 oxycodone [From Percocet] Allergy Hives Verified 01/12/18 18:06 tylenol #4 Allergy Hives Uncoded 01/12/18 18:06 Home Meds: Home Meds ClonazePAM [KlonoPIN] 0.5 tab PO BID PRN 12/15/14 [History] Hydrocodone/Acetaminophen [Hydrocodon-Acetaminophn 10-325] 1 tab PO ASDIRECTED PRN 04/24/16 [History] Propranolol HCl 1 tab PO QID 04/24/16 [History] cloNIDine HCl [Catapres] 1 tab PO DAILY 05/21/16 [History] Amoxicillin/Potassium Clav [Augmentin 875-125 Tablet] 1 each PO BID #14 tablet 02/27/17 [Rx] Furosemide 02/27/17 [History] hydrALAZINE [Apresoline] 25 mg PO QID 02/27/17 [History] Past Medical History - Past Health History Medical/Surgical History: Denies Medical/Surgical History Other HEENT History: wears glasses Cardiovascular 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: Hypertension Respiratory 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: None Other Respiratory History: does no use CPAP Gastrointestinal 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: None Genitourinary 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: None 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 BORE 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 History: uterine fibroids Musculoskeletal 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: None Neurological 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: None Psychiatric 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: Anxiety, Depression Endocrine/Metabolic 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: Hyperthyroidism, Obesity/BMI 30+ Other Endocrine/Metabolic History: Graves disease Hematologic 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: None Immunologic 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: None Oncologic (Cancer) 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: None Dermatologic 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: None - Infectious Disease History Infectious Disease 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: Chicken Pox - Past Surgical History Head Surgeries/Procedures: Reports: None HEENT Surgical 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: Tonsillectomy Respiratory Surgical 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: None GI Surgical 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: None Female Surgical 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: Other (See Below) Other Female Surgeries/Procedures: myomectomy Endocrine Surgical 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: None Neurological Surgical 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: None Musculoskeletal Surgical 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: None Oncologic Surgical 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: None Dermatological Surgical 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: None Social & Family History - Family History Family Medical History: Noncontributory Cardiac: Reports: CAD Endocrine/Metabolic: Reports: None - Tobacco Use Smoking Status *Q: Never Smoker - Caffeine Use Caffeine Use: Reports: None - Recreational Drug Use Recreational Drug Use: No ED ROS GENERAL - Review of Systems Review Of Systems: ROS reveals no pertinent complaints other than HPI. ED EXAM, GENERAL - Physical Exam Exam: See Below (See history of present illness) Departure - Departure Time of Disposition: 18:25 Disposition: Home, Self-Care 01 Condition: Good Clinical Impression: Pain, dental - Discharge Information *PRESCRIPTION DRUG MONITORING PROGRAM REVIEWED*: No *COPY OF PRESCRIPTION DRUG MONITORING REPORT IN PATIENT JOSELIN: No Referrals: Danuta Long DO [Primary Care Provider] - Additional Instructions: The following information is given to patients seen in the emergency department who are being discharged to home. This information is to outline your options for follow-up care. We provide all patients seen in our emergency department with a follow-up referral. The need for follow-up, as well as the timing and circumstances, are variable depending upon the specifics of your emergency department visit. If you don't have a primary care physician on staff, we will provide you with a referral. We always advise you to contact your personal physician following an emergency department visit to inform them of the circumstance of the visit and for follow-up with them and/or the need for any referrals to a consulting specialist. The emergency department will also refer you to a specialist when appropriate. This referral assures that you have the opportunity for follow-up care with a specialist. All of these measure are taken in an effort to provide you with optimal care, which includes your follow-up. Under all circumstances we always encourage you to contact your private physician who remains a resource for coordinating your care. When calling for follow-up care, please make the office aware that this follow-up is from your recent emergency room visit. If for any reason you are refused follow-up, please contact the Emergency Department at and asked to speak to the emergency department charge nurse. Follow-up with dentist, get a bite block, salt water gargles, continue ibuprofen and Tylenol for pain, return if symptoms worsen or change.
[2018-01-12 19:16] VITALS: BP 128/72
== END 2018-01-12 18:33 | disposition home or self-care (01) ==
LOC: MW.ED 17:48
DX: K08.89 Other specified disorders of teeth and supporting structures (principal); I10 Essential (primary) hypertension; E66.9 Obesity, unspecified; Z88.6 Allergy status to analgesic agent
CPT/HCPCS: 99283

== ENCOUNTER 2018-08-11 20:50 | Emergency (ER) | payer BC ==
--- NOTE | 2018-08-11 21:13 | EDM.PDOC ---
ED HPI GENERAL MEDICAL PROBLEM - General Chief Complaint: General Stated Complaint: FIBROMYALGIA PAIN Time Seen by Provider: 08/11/18 21:11 Source of Information: Reports: Patient - History of Present Illness INITIAL COMMENTS - FREE TEXT/NARRATIVE: HISTORY AND PHYSICAL: History of present illness: []Patient with history of primary or fibromyalgia on very much maximal therapy modalities for her fibromyalgia she is also under the care of pain management and is just established However follow with her primary DrPower nor does he, at [place] as I do not have the records I'm not sure for rheumatoid and other chronic issues have been factored out however she is under the care pain management as well He has no fever nausea vomiting diarrhea constipation chest pain shortness breath headache dizziness palpitation no bowel or urine symptoms Review of systems: As per history of present illness and below otherwise all systems reviewed and negative. Past medical history: As per history of present illness and as reviewed below otherwise noncontributory. Surgical history: As per history of present illness and as reviewed below otherwise noncontributory. Social history: No reported history of drug or alcohol abuse. Family history: As per history of present illness and as reviewed below otherwise noncontributory. Physical exam: HEENT: Atraumatic, normocephalic, pupils reactive, negative for conjunctival pallor or scleral icterus, mucous membranes moist, throat clear, neck supple, nontender, trachea midline. Lungs: Clear to auscultation, breath sounds equal bilaterally, chest nontender. Heart: S1S2, regular, negative for clicks, rubs, or JVD. Abdomen: Soft, nondistended, nontender. Negative for masses or hepatosplenomegaly. Negative for costovertebral tenderness. Pelvis: Stable nontender. Genitourinary: Deferred. Rectal: Deferred. Extremities: Atraumatic, negative for cords or calf pain. Neurovascular unremarkable. Neuro: Awake, alert, oriented. Cranial nerves II through XII unremarkable. Cerebellum unremarkable. Motor and sensory unremarkable throughout. Exam nonfocal. Musculoskeletal immersed triggerpoints are affected consistent with fibromyalgia Diagnostics: clinical Therapeutics: Flexeril Impression: fibro myalgia Definitive disposition and diagnosis as appropriate pending reevaluation and review of above. Generalized Pain Score (Numeric/FACES): 10 - Related Data Allergies Allergy/AdvReac Type Severity Reaction Status Date / Time acetaminophen [From Percocet] Allergy Hives Verified 08/11/18 21:03 oxycodone [From Percocet] Allergy Hives Verified 08/11/18 21:03 tylenol #4 Allergy Hives Uncoded 08/11/18 21:03 Home Meds: Home Meds Hydrocodone/Acetaminophen [Hydrocodon-Acetaminophn 10-325] 1 tab PO ASDIRECTED PRN 04/24/16 [History] Propranolol HCl 40 tab PO QID 04/24/16 [History] cloNIDine HCl [Catapres] 1 tab PO BEDTIME 05/21/16 [History] Furosemide 20 mg PO ASDIRECTED 02/27/17 [History] hydrALAZINE [Apresoline] 25 mg PO QID 02/27/17 [History] ALPRAZolam [Xanax] 1 mg PO TID 02/23/18 [History] Desvenlafaxine Succinate [Pristiq] 100 mg PO DAILY 02/23/18 [History] amLODIPine [Norvasc] 2.5 mg PO DAILY 02/23/18 [History] Norethindrone [Taylor] 0.35 mg PO DAILY 08/11/18 [History] cloNIDine HCl [Clonidine HCl ER] 0.1 mg PO ASDIRECTED 08/11/18 [History] Past Medical History - Past Health History Medical/Surgical History: Denies Medical/Surgical History HEENT 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: Other (See Below) Other HEENT History: wears glasses Cardiovascular 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: Hypertension Respiratory 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: None Other Respiratory History: does no use CPAP Gastrointestinal 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: None Genitourinary 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: None [employer] 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: None Other [employer] History: uterine fibroids Musculoskeletal 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: None Neurological 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: None Psychiatric 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: Anxiety, Depression Endocrine/Metabolic 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: Hyperthyroidism, Obesity/BMI 30+ Other Endocrine/Metabolic History: Graves disease Hematologic 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: None Immunologic 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: None Oncologic (Cancer) 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: None Dermatologic 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: None - Infectious Disease History Infectious Disease 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: Chicken Pox - Past Surgical History Head Surgeries/Procedures: Reports: None HEENT Surgical 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: Tonsillectomy Cardiovascular Surgical 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: None Respiratory Surgical 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: None GI Surgical 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: None Female Surgical 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: Other (See Below) Other Female Surgeries/Procedures: myomectomy Endocrine Surgical 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: None Neurological Surgical 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: None Musculoskeletal Surgical 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: None Oncologic Surgical 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: None Dermatological Surgical 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: None Social & Family History - Family History Family Medical History: Noncontributory Cardiac: Reports: CAD Endocrine/Metabolic: Reports: None - Caffeine Use Caffeine Use: Reports: Soda ED ROS GENERAL - Review of Systems Review Of Systems: See Below ED EXAM, GENERAL - Physical Exam Exam: See Below Course - Vital Signs Last Recorded V/S: Last Vital Signs Temp 97.3 F 08/11/18 21:00 Pulse 96 08/11/18 21:00 Resp BP 146/110 H 08/11/18 21:00 Pulse Ox 97 08/11/18 21:00 Departure - Departure Time of Disposition: 21:13 Disposition: Home, Self-Care 01 Condition: Good Clinical Impression: Fibromyalgia - Discharge Information Referrals: Danuta Long DO [Primary Care Provider] - Additional Instructions: The following information is given to patients seen in the emergency department who are being discharged to home. This information is to outline your options for follow-up care. We provide all patients seen in our emergency department with a follow-up referral. The need for follow-up, as well as the timing and circumstances, are variable depending upon the specifics of your emergency department visit. If you don't have a primary care physician on staff, we will provide you with a referral. We always advise you to contact your personal physician following an emergency department visit to inform them of the circumstance of the visit and for follow-up with them and/or the need for any referrals to a consulting specialist. The emergency department will also refer you to a specialist when appropriate. This referral assures that you have the opportunity for follow-up care with a specialist. All of these measure are taken in an effort to provide you with optimal care, which includes your follow-up. Under all circumstances we always encourage you to contact your private physician who remains a resource for coordinating your care. When calling for follow-up care, please make the office aware that this follow-up is from your recent emergency room visit. If for any reason you are refused follow-up, please contact the [facility] emergency department at and asked to speak to the emergency department charge nurse.
[2018-08-11 21:36] VITALS: BP 147/96
== END 2018-08-11 21:36 | disposition home or self-care (01) ==
LOC: MW.ED 20:50
DX: M79.7 Fibromyalgia (principal); E66.9 Obesity, unspecified; I10 Essential (primary) hypertension; Z88.8 Allergy status to other drugs, medicaments and biological substances; Z79.899 Other long term (current) drug therapy; Z68.41 Body mass index [BMI] 40.0-44.9, adult
CPT/HCPCS: 99283

== ENCOUNTER 2018-10-24 11:05 | Emergency (ER) | payer BC ==
--- NOTE | 2018-10-24 11:16 | EDM.PDOC ---
ED HPI GENERAL MEDICAL PROBLEM - General Chief Complaint: Flank Pain Stated Complaint: PAIN IN SIDE Time Seen by Provider: 10/24/18 11:15 Source of Information: Reports: Patient History Limitations: Reports: No Limitations - History of Present Illness INITIAL COMMENTS - FREE TEXT/NARRATIVE: HISTORY AND PHYSICAL: History of present illness: She is a 38-year-old female presents to ED with complaint of right-sided flank and abdominal pain and nonbloody diarrhea 3 days. Past medical history of hypertension and fibromyalgia. She denies fevers, chills, nausea, vomiting, chest pain, SOB, dysuria, hematuria. LMP October 03. Review of systems: As per history of present illness and below otherwise all systems reviewed and negative. Past medical history: As per history of present illness and as reviewed below otherwise noncontributory. Surgical history: As per history of present illness and as reviewed below otherwise noncontributory. Social history: No reported history of drug or alcohol abuse. Family history: As per history of present illness and as reviewed below otherwise noncontributory. Physical exam: General: Patient sitting comfortably in no acute distress and nontoxic appearing HEENT: Atraumatic, normocephalic, pupils reactive, negative for conjunctival pallor or scleral icterus, mucous membranes moist, throat clear, neck supple, nontender, trachea midline. No meningeal signs. Lungs: Clear to auscultation, breath sounds equal bilaterally, chest nontender. Heart: S1S2, regular, negative for clicks, rubs, or overt murmur. Abdomen: Suprapubic and RLQ tenderness to palpation. Soft, nondistended. Negative for masses or hepatosplenomegaly. Right costovertebral tenderness. No rigidity, rebound, guarding. Pelvis: Stable nontender. Genitourinary: Deferred. Rectal: Deferred. Extremities: Atraumatic, negative for cords or calf pain. Neurovascular unremarkable. Neuro: Awake, alert, oriented. Cranial nerves II through XII unremarkable. Cerebellum unremarkable. Motor and sensory unremarkable throughout. Exam nonfocal. Notes: Diagnostics: CBC, CMP, UA, urine hcg Therapeutics: None Prescriptions: None Impression: Abdominal pain, diarrhea Plan: Drink plenty of fluids, tylenol or motrin as needed for discomfort, and immodium as needed for diarrhea Follow up with primary care provider Return to ED as needed as discussed Definitive disposition and diagnosis as appropriate pending reevaluation and review of above. Right Flank Pain Score (Numeric/FACES): 0 - Related Data Allergies Allergy/AdvReac Type Severity Reaction Status Date / Time acetaminophen [From Percocet] Allergy Hives Verified 10/24/18 11:10 oxycodone [From Percocet] Allergy Hives Verified 10/24/18 11:10 tylenol #4 Allergy Hives Uncoded 10/24/18 11:10 Home Meds: Home Meds Hydrocodone/Acetaminophen [Hydrocodon-Acetaminophn 10-325] 1 tab PO ASDIRECTED PRN 04/24/16 [History] Propranolol HCl 40 tab PO QID 04/24/16 [History] cloNIDine HCl [Catapres] 1 tab PO BEDTIME 05/21/16 [History] Furosemide 20 mg PO ASDIRECTED 02/27/17 [History] hydrALAZINE [Apresoline] 25 mg PO QID 02/27/17 [History] ALPRAZolam [Xanax] 1 mg PO TID 02/23/18 [History] Desvenlafaxine Succinate [Pristiq] 100 mg PO DAILY 02/23/18 [History] Zolpidem [Ambien] 5 mg PO BEDTIME 10/24/18 [History] Past Medical History - Past Health History Medical/Surgical History: Denies Medical/Surgical History HEENT 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: Other (See Below) Other HEENT History: wears glasses Cardiovascular 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: Hypertension Respiratory 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: None Other Respiratory History: does no use CPAP Gastrointestinal 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: None Genitourinary 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: None [employer] INSPECTOR 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: 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 Musculoskeletal 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: None Neurological 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: None Psychiatric 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: Anxiety, Depression Endocrine/Metabolic 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: Hyperthyroidism, Obesity/BMI 30+ Other Endocrine/Metabolic History: Graves disease Hematologic 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: None Immunologic 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: None Oncologic (Cancer) 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: None Dermatologic 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: None - Infectious Disease History Infectious Disease 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: Chicken Pox - Past Surgical History Head Surgeries/Procedures: Reports: None HEENT Surgical 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: Tonsillectomy Cardiovascular Surgical 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: None Respiratory Surgical 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: None GI Surgical 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: None Female Surgical 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: Other (See Below) Other Female Surgeries/Procedures: myomectomy Endocrine Surgical 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: None Neurological Surgical 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: None Musculoskeletal Surgical 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: None Oncologic Surgical 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: None Dermatological Surgical 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: None Social & Family History - Family History Family Medical History: Noncontributory Cardiac: Reports: CAD Endocrine/Metabolic: Reports: None - Caffeine Use Caffeine Use: Reports: Soda ED ROS GENERAL - Review of Systems Review Of Systems: ROS reveals no pertinent complaints other than HPI. ED EXAM, RENAL/ - Physical Exam Exam: See Below (see dictation) Course - Vital Signs Last Recorded V/S: Last Vital Signs Temp 96.7 F 10/24/18 11:56 Pulse 73 10/24/18 11:56 Resp 18 10/24/18 11:13 BP 112/76 10/24/18 11:56 Pulse Ox 99 10/24/18 11:56 - Orders/Labs/Meds Labs: Laboratory Tests 10/24/18 10/24/18 10/24/18 Range/Units 11:19 11:19 11:38 WBC 9.28 (4.0-11.0) K/uL RBC 4.62 (4.30-5.90) M/uL Hgb 12.6 (12.0-16.0) g/dL Hct 38.1 (36.0-46.0) % MCV 82.5 (80.0-98.0) fL MCH 27.3 (27.0-32.0) pg MCHC 33.1 (31.0-37.0) g/dL RDW Std Deviation 41.7 (28.0-62.0) fl RDW Coeff of Eduardo 14 (11.0-15.0) % Plt Count 283 (150-400) K/uL MPV 9.90 (7.40-12.00) fL Neut % (Auto) 57.5 (48.0-80.0) % Lymph % (Auto) 35.5 (16.0-40.0) % Elmore % (Auto) 5.9 (0.0-15.0) % Eos % (Auto) 1.0 (0.0-7.0) % Baso % (Auto) 0.1 (0.0-1.5) % Neut # (Auto) 5.3 (1.4-5.7) K/uL Lymph # (Auto) 3.3 H (0.6-2.4) K/uL Elmore # (Auto) 0.6 (0.0-0.8) K/uL Eos # (Auto) 0.1 (0.0-0.7) K/uL Baso # (Auto) 0.0 (0.0-0.1) K/uL Nucleated RBC % 0.0 /100WBC Nucleated RBCs # 0 K/uL Sodium (136-145) mmol/L Potassium (3.5-5.1) mmol/L Chloride (98-107) mmol/L Carbon Dioxide (21.0-32.0) mmol/L BUN (7.0-18.0) mg/dL Creatinine (0.6-1.0) mg/dL Est Cr Clr Drug Dosing mL/min Estimated GFR (MDRD) ml/min Glucose (74-106) mg/dL Calcium (8.5-10.1) mg/dL Total Bilirubin (0.2-1.0) mg/dL AST (15-37) IU/L ALT (14-63) IU/L Alkaline Phosphatase (46-116) U/L Total Protein (6.4-8.2) g/dL Albumin (3.4-5.0) g/dL Globulin (2.6-4.0) g/dL Albumin/Globulin Ratio (0.9-1.6) Urine Color YELLOW Urine Appearance CLEAR Urine pH 6.0 (5.0-8.0) Ur Specific Loving 1.025 (1.001-1.035) Urine Protein NEGATIVE (NEGATIVE) mg/dL Urine Glucose (UA) NEGATIVE (NEGATIVE) mg/dL Urine Ketones NEGATIVE (NEGATIVE) mg/dL Urine Occult Blood NEGATIVE (NEGATIVE) Urine Nitrite NEGATIVE (NEGATIVE) Urine Bilirubin NEGATIVE (NEGATIVE) Urine Urobilinogen 0.2 (<2.0) EU/dL Ur Leukocyte Esterase NEGATIVE (NEGATIVE) Urine HCG, Qual NEGATIVE (NEGATIVE) 10/24/18 Range/Units 11:38 WBC (4.0-11.0) K/uL RBC (4.30-5.90) M/uL Hgb (12.0-16.0) g/dL Hct (36.0-46.0) % MCV (80.0-98.0) fL MCH (27.0-32.0) pg MCHC (31.0-37.0) g/dL RDW Std Deviation (28.0-62.0) fl RDW Coeff of Eduardo (11.0-15.0) % Plt Count (150-400) K/uL MPV (7.40-12.00) fL Neut % (Auto) (48.0-80.0) % Lymph % (Auto) (16.0-40.0) % Elmore % (Auto) (0.0-15.0) % Eos % (Auto) (0.0-7.0) % Baso % (Auto) (0.0-1.5) % Neut # (Auto) (1.4-5.7) K/uL Lymph # (Auto) (0.6-2.4) K/uL Elmore # (Auto) (0.0-0.8) K/uL Eos # (Auto) (0.0-0.7) K/uL Baso # (Auto) (0.0-0.1) K/uL Nucleated RBC % /100WBC Nucleated RBCs # K/uL Sodium 140 (136-145) mmol/L Potassium 4.3 (3.5-5.1) mmol/L Chloride 104 (98-107) mmol/L Carbon Dioxide 25.1 (21.0-32.0) mmol/L BUN 10 (7.0-18.0) mg/dL Creatinine 0.8 (0.6-1.0) mg/dL Est Cr Clr Drug Dosing 100.62 mL/min Estimated GFR (MDRD) > 60.0 ml/min Glucose 110 H (74-106) mg/dL Calcium 9.5 (8.5-10.1) mg/dL Total Bilirubin 0.4 (0.2-1.0) mg/dL AST 12 L (15-37) IU/L ALT 20 (14-63) IU/L Alkaline Phosphatase 74 (46-116) U/L Total Protein 7.6 (6.4-8.2) g/dL Albumin 3.6 (3.4-5.0) g/dL Globulin 4.0 (2.6-4.0) g/dL Albumin/Globulin Ratio 0.9 (0.9-1.6) Urine Color Urine Appearance Urine pH (5.0-8.0) Ur Specific Loving (1.001-1.035) Urine Protein (NEGATIVE) mg/dL Urine Glucose (UA) (NEGATIVE) mg/dL Urine Ketones (NEGATIVE) mg/dL Urine Occult Blood (NEGATIVE) Urine Nitrite (NEGATIVE) Urine Bilirubin (NEGATIVE) Urine Urobilinogen (<2.0) EU/dL Ur Leukocyte Esterase (NEGATIVE) Urine HCG, Qual (NEGATIVE) Departure - Departure Time of Disposition: 12:48 Disposition: Home, Self-Care 01 Condition: Good Clinical Impression: Abdominal pain, Diarrhea - Discharge Information Referrals: Danuta Long DO [Primary Care Provider] - Forms: ED Department Discharge Additional Instructions: Drink plenty of fluids, tylenol or motrin as needed for discomfort, and immodium as needed for diarrhea Follow up with primary care provider Return to ED as needed as discussed
[2018-10-24 11:56] VITALS: BP 112/76
[2018-10-24 12:18] LABS: CHLORIDE,CL 104 mmol/L (98-107); SODIUM,NA 140 mmol/L (136-145)
== END 2018-10-24 13:00 | disposition home or self-care (01) ==
LOC: MW.ED 11:05
DX: R10.31 Right lower quadrant pain (principal); R19.7 Diarrhea, unspecified; I10 Essential (primary) hypertension; F41.9 Anxiety disorder, unspecified; F32.9 Major depressive disorder, single episode, unspecified; E66.9 Obesity, unspecified; Z88.6 Allergy status to analgesic agent; Z79.899 Other long term (current) drug therapy; Z98.890 Other specified postprocedural states
CPT/HCPCS: 36415; 80053; 81003; 81025; 85025; 99284

== ENCOUNTER 2021-10-23 17:24 | Emergency (ER) | payer BC, MEDICAID ==
[2021-10-23] MEDS ORDERED: Sodium Chloride 0.9% 1,000 ML IV ONE (17:39)
[2021-10-23 18:10] LABS: POTASSIUM,K 4.5 mmol/L (3.5-5.1)
[2021-10-23] MEDS ORDERED: Iopamidol 755 MG/ML 500 ML Multipack Bottle IVPUSH ONE (19:44)
[2021-10-23] MEDS ORDERED: Acetaminophen 500 MG Tab PO ONE (21:06)
[2021-10-23 21:31] VITALS: BP 125/88; PULSE 86
== END 2021-10-23 21:29 | disposition home or self-care (01) ==
LOC: MW.ED 17:24
DX: R00.2 Palpitations (principal); I10 Essential (primary) hypertension; E66.9 Obesity, unspecified; Z68.41 Body mass index [BMI] 40.0-44.9, adult; Z88.5 Allergy status to narcotic agent; Z88.6 Allergy status to analgesic agent; Z79.899 Other long term (current) drug therapy; Z20.822 Contact with and (suspected) exposure to COVID-19
CPT/HCPCS: 36415; 71045; 71275; 80053; 83735; 84439; 84443; 84481; 84484; 84703; 85025; 85379; 87635; 93005; 96360; 99285; A9270; J7030; Q9967; 93010; 99284; U0002

== ENCOUNTER 2022-08-15 16:57 | Emergency (ER) | payer MEDICAID ==
[2022-08-15] MEDS ORDERED: Sodium Chloride 0.9% 10 ML Syringe FLUSH PRN (17:25)
[2022-08-15] MEDS ORDERED: Sodium Chloride 0.9% 2.5 ML Syringe FLUSH PRN (17:25)
[2022-08-15] MEDS ORDERED: diphenhydrAMINE 50 MG/ML SDV IVPUSH ONE (17:26)
[2022-08-15] MEDS ORDERED: Metoclopramide 10 MG/2 ML SDV IVPUSH ONE ×2 (17:26→19:09)
[2022-08-15 18:05] LABS: BASOPHILS PERCENT AUTO 0.3 % (0.0-1.5); EOSINOPHILS ABSOLUTE AUTO 0.2 K/uL (0.0-0.7); EOSINOPHILS PERCENT AUTO 1.3 % (0.0-7.0); HEMOGLOBIN 12.9 g/dL (12.0-16.0); LYMPHOCYTES ABSOLUTE AUTO 3.5 K/uL (0.6-2.4); LYMPHOCYTES PERCENT AUTO 30.5 % (16.0-40.0); MEAN CORPUSCULAR HEMOGLOBIN 27.2 pg (27.0-32.0); MEAN CORPUSCULAR HGB CONC 33.9 g/dL (31.0-37.0); MEAN CORPUSCULAR VOLUME 80.2 fL (80.0-98.0); MONOCYTES ABSOLUTE AUTO 0.8 K/uL (0.0-0.8); MONOCYTES PERCENT AUTO 7.3 % (0.0-15.0); NEUTROPHILS PERCENT AUTO 60.6 % (48.0-80.0); PLATELET COUNT,PLT 388 K/uL (150-400); RED BLOOD CELL COUNT 4.74 M/uL (4.30-5.90); WHITE BLOOD CELL COUNT,WBC 11.49 K/uL (4.0-11.0)
[2022-08-15 18:12] LABS: A/G RATIO 0.9 (0.9-1.6); BILIRUBIN TOTAL 0.7 mg/dL (0.2-1.0); CALCIUM 9.4 mg/dL (8.5-10.1); CARBON DIOXIDE,CO2 24.9 mmol/L (21.0-32.0); CREATININE 0.8 mg/dL (0.6-1.0); EST CRCL DRUG DOSING (CG) 96.71 mL/min; MAGNESIUM 1.9 mg/dL (1.8-2.4); POTASSIUM,K 3.6 mmol/L (3.5-5.1); PROTEIN TOTAL,TP 8.3 g/dL (6.4-8.2); TSH ULTRASENSITIVE 1.76 uIU/mL (0.36-3.74)
[2022-08-15 20:24] VITALS: BP 169/102; PULSE 71
== END 2022-08-15 20:18 | disposition home or self-care (01) ==
LOC: MW.ED 16:57
DX: R51.9 Headache, unspecified (principal); I10 Essential (primary) hypertension; R11.2 Nausea with vomiting, unspecified; E11.9 Type 2 diabetes mellitus without complications; E05.90 Thyrotoxicosis, unspecified without thyrotoxic crisis or storm; Z88.5 Allergy status to narcotic agent; Z88.8 Allergy status to other drugs, medicaments and biological substances
CPT/HCPCS: 36415; 70450; 80053; 83690; 83735; 84443; 85025; 96374; 96375; 96376; 99284; J1200; J2765; J3490

== ENCOUNTER 2023-03-14 14:53 | Emergency (ER) | payer MEDICAID ==
[2023-03-14] MEDS ORDERED: Ondansetron 4 MG/2 ML SDV IVPUSH ONE (15:41)
[2023-03-14] MEDS ORDERED: Sodium Chloride 0.9% 1,000 ML IV ONE (15:41)
[2023-03-14] MEDS ORDERED: Ketorolac 30 MG/ML SDV IVPUSH ONE (15:41)
[2023-03-14 16:29] LABS: HEMOGLOBIN 14.1 g/dL (12.0-16.0); MEAN CORPUSCULAR HEMOGLOBIN 27.5 pg (28.0-32.0); MEAN CORPUSCULAR HGB CONC 33.6 g/dL (32.0-36.0); MEAN CORPUSCULAR VOLUME 81.9 fL (83.0-99.0); MEAN PLATELET VOLUME 9.6 fL (9.4-12.3); PLATELET COUNT,PLT 357 K/uL (150-400); RED BLOOD CELL COUNT 5.13 M/uL (4.10-5.30); WHITE BLOOD CELL COUNT,WBC 12.55 K/uL (3.9-11.3)
[2023-03-14 17:02] LABS: ALBUMIN 3.9 g/dL (3.4-5.0); BILIRUBIN TOTAL 0.7 mg/dL (0.2-1.0); CALCIUM 9.4 mg/dL (8.5-10.1); CARBON DIOXIDE,CO2 29.6 mmol/L (21.0-32.0); EST CRCL DRUG DOSING (CG) 74.68 mL/min; POTASSIUM,K 3.7 mmol/L (3.5-5.1)
[2023-03-14 17:09] LABS: EOSINOPHILS ABSOLUTE MAN 0.25 K/uL (0.00-0.45); EOSINOPHILS PERCENT MAN 2 % (0-6); LYMPHOCYTES PERCENT MAN 47 % (24-44); MONOCYTES ABSOLUTE MAN 0.38 K/uL (0.00-0.80); MONOCYTES PERCENT MAN 3 % (0-8); SEG NEUTROPHILS ABSOLUTE MAN 6.02 K/uL (1.80-7.70); SEG NEUTROPHILS PERCENT MAN 48 % (41-71)
[2023-03-14 17:36] LABS: APPEARANCE,URINE SLT CLOUDY; BILIRUBIN,URINE NEGATIVE (NEGATIVE); GLUCOSE,URINE 500 mg/dL (NEGATIVE); KETONES,URINE NEGATIVE (NEGATIVE); LEUKOCYTE ESTERASE,URINE SMALL (NEGATIVE); NITRITE,URINE NEGATIVE (NEGATIVE); OCCULT BLOOD,URINE NEGATIVE (NEGATIVE); PH,URINE 5.5 (5.0-8.0); PROTEIN,URINE NEGATIVE (NEGATIVE); UROBILINOGEN,URINE 0.2 EU/dL (<2.0)
[2023-03-14 17:52] LABS: COLOR,URINE YELLOW
[2023-03-14 18:04] LABS: CORONAVIRUS COVID-19 NAA NEGATIVE (NEGATIVE); INFLUENZA A NAA NEGATIVE (NEGATIVE); INFLUENZA B NAA NEGATIVE (NEGATIVE)
[2023-03-14 18:06] LABS: BACTERIA,URINE 1+ (NEGATIVE); EPITHELIAL CELLS,URINE MODERATE (NONE-FEW); RBC,URINE 0-1 (0-2/HPF)
[2023-03-14] MEDS ORDERED: Iopamidol 755 MG/ML 500 ML Multipack Bottle IVPUSH STA (18:27)
[2023-03-14 19:29] VITALS: BP 111/82; PULSE 65
== END 2023-03-14 19:29 | disposition home or self-care (01) ==
LOC: MW.ED 14:53
DX: N39.0 Urinary tract infection, site not specified (principal); B34.9 Viral infection, unspecified; I10 Essential (primary) hypertension; E78.00 Pure hypercholesterolemia, unspecified; E11.9 Type 2 diabetes mellitus without complications; Z79.899 Other long term (current) drug therapy; Z88.5 Allergy status to narcotic agent; Z88.6 Allergy status to analgesic agent; Z20.822 Contact with and (suspected) exposure to COVID-19
CPT/HCPCS: 0240U; 36415; 71045; 74177; 80053; 81001; 81025; 83690; 85025; 87086; 96361; 96374; 96375; 99284; J1885; J2405; J7030; Q9967; 87088; 87186

== ENCOUNTER 2023-09-15 20:43 | Emergency (ER) | payer MEDICAID ==
[2023-09-15 21:26] LABS: BASOPHILS ABSOLUTE AUTO 0.02 K/uL (0.00-0.20); BASOPHILS PERCENT AUTO 0.2 % (0.0-1.0); EOSINOPHILS ABSOLUTE AUTO 0.17 K/uL (0.00-0.45); EOSINOPHILS PERCENT AUTO 1.4 % (0.0-6.0); HEMATOCRIT 44.6 % (37.0-47.0); HEMOGLOBIN 14.9 g/dL (12.0-16.0); IMMATURE GRAN ABSOLUTE AUTO 0.03 K/uL (0.00-0.05); IMMATURE GRAN PERCENT AUTO 0.2 % (0.0-0.4); LYMPHOCYTES ABSOLUTE AUTO 3.78 K/uL (1.00-4.80); LYMPHOCYTES PERCENT AUTO 30.7 % (24.0-44.0); MEAN CORPUSCULAR HEMOGLOBIN 27.5 pg (28.0-32.0); MEAN CORPUSCULAR HGB CONC 33.4 g/dL (32.0-36.0); MEAN CORPUSCULAR VOLUME 82.3 fL (83.0-99.0); MEAN PLATELET VOLUME 9.4 fL (9.4-12.3); MONOCYTES PERCENT AUTO 6.5 % (0.0-8.0); NEUTROPHILS ABSOLUTE AUTO 7.52 K/uL (1.80-7.70); PLATELET COUNT,PLT 333 K/uL (150-400); RED BLOOD CELL COUNT 5.42 M/uL (4.10-5.30); WHITE BLOOD CELL COUNT,WBC 12.32 K/uL (3.9-11.3)
[2023-09-15] MEDS: Furosemide 40 MG/4 ML VIAL IVPUSH ONE (21:32)
[2023-09-15] MEDS: Sodium Chloride 0.9% 2.5 ML Syringe FLUSH PRN (21:32)
[2023-09-15] MEDS: Ketorolac 30 MG/ML SDV IVPUSH ONE (21:32)
[2023-09-15] MEDS: Sodium Chloride 0.9% 10 ML Syringe FLUSH PRN (21:32)
[2023-09-15 21:53] LABS: A/G RATIO 0.9 (0.9-1.6); ALANINE AMINOTRANSFERASE,ALT 15 IU/L (14-63); ALBUMIN 4.3 g/dL (3.4-5.0); ALKALINE PHOSPHATASE 91 U/L (46-116); ASPARTATE AMNIOTRANSFERASE,AST 13 IU/L (15-37); BILIRUBIN TOTAL 0.5 mg/dL (0.2-1.0); BLOOD UREA NITROGEN,BUN 20 mg/dL (7.0-18.0); CALCIUM 9.3 mg/dL (8.5-10.1); CARBON DIOXIDE,CO2 22.2 mmol/L (21.0-32.0); CHLORIDE,CL 102 mmol/L (98-107); CREATININE 1.2 mg/dL (0.6-1.0); EST CRCL DRUG DOSING (CG) 63.82 mL/min; GLUCOSE RANDOM 102 mg/dL (74-106); MAGNESIUM 2.3 mg/dL (1.8-2.4); POTASSIUM,K 4.1 mmol/L (3.5-5.1); PRO B-TYPE NATRIUR PEPT,BNPPRO 44 pg/mL (0-125); PROTEIN TOTAL,TP 9.2 g/dL (6.4-8.2); SODIUM,NA 138 mmol/L (136-145)
[2023-09-15 21:56] LABS: ESTIMATED GFR 58 mL/min (>60)
[2023-09-15 23:39] VITALS: BP 140/95; PULSE 103
== END 2023-09-15 23:37 | disposition home or self-care (01) ==
LOC: MW.ED 20:43
DX: M79.7 Fibromyalgia (principal); I10 Essential (primary) hypertension; E11.9 Type 2 diabetes mellitus without complications; Z88.6 Allergy status to analgesic agent; Z88.5 Allergy status to narcotic agent; Z79.899 Other long term (current) drug therapy; Z75.8 Other problems related to medical facilities and other health care
CPT/HCPCS: 36415; 80053; 83735; 83880; 84484; 85025; 93005; 93970; 96374; 96375; 99284; J1885; J1940; J3490

== ENCOUNTER 2025-01-04 13:09 | Emergency (ER) | payer MEDICAID ==
[2025-01-04 13:26] VITALS: BP 151/104; PULSE 102
[2025-01-04 14:00] LABS: MEAN PLATELET VOLUME 9.6 fL (9.4-12.3); NRBC ABSOLUTE 0.00 K/uL (0.00-0.02); NRBC PERCENT 0.0 /100WBC (0.0-0.2); PLATELET COUNT,PLT 374 K/uL (150-400); RED BLOOD CELL COUNT 5.95 M/uL (4.10-5.30); WHITE BLOOD CELL COUNT,WBC 13.79 K/uL (3.9-11.3)
[2025-01-04 14:14] LABS: SEG NEUTROPHILS ABSOLUTE MAN 5.93 K/uL (1.80-7.70); SEG NEUTROPHILS PERCENT MAN 43 % (41-71)
[2025-01-04 14:15] LABS: EOSINOPHILS ABSOLUTE MAN 0.41 K/uL (0.00-0.45); EOSINOPHILS PERCENT MAN 3 % (0-6); LYMPHOCYTES ABSOLUTE MAN 7.03 K/uL (1.00-4.80); LYMPHOCYTES PERCENT MAN 51 % (24-44); MONOCYTES ABSOLUTE MAN 0.41 K/uL (0.00-0.80); MONOCYTES PERCENT MAN 3 % (0-8)
[2025-01-04 14:25] LABS: A/G RATIO 1.0 (0.9-1.6); ALANINE AMINOTRANSFERASE,ALT 15 IU/L (14-63); ASPARTATE AMNIOTRANSFERASE,AST 10 IU/L (15-37); BILIRUBIN TOTAL 0.6 mg/dL (0.2-1.0); BLOOD UREA NITROGEN,BUN 15 mg/dL (7.0-18.0); CARBON DIOXIDE,CO2 27.3 mmol/L (21.0-32.0); CHLORIDE,CL 104 mmol/L (98-107); CREATININE 0.7 mg/dL (0.6-1.0); EST CRCL DRUG DOSING (CG) 108.30 mL/min; GLUCOSE RANDOM 100 mg/dL (74-106); POTASSIUM,K 3.3 mmol/L (3.5-5.1); PROTEIN TOTAL,TP 8.3 g/dL (6.4-8.2); SODIUM,NA 143 mmol/L (136-145)
[2025-01-04 14:27] LABS: ESTIMATED GFR 110 mL/min (>60)
[2025-01-04 14:32] LABS: TSH ULTRASENSITIVE 7.24 uIU/mL (0.36-3.74)
[2025-01-04 17:15] LABS: T4 FREE 0.88 ng/dL (0.76-1.46)
== END 2025-01-04 16:52 | disposition home or self-care (01) ==
LOC: MW.ED 13:09
DX: R00.2 Palpitations (principal); E11.9 Type 2 diabetes mellitus without complications; Z86.59 Personal history of other mental and behavioral disorders; Z79.899 Other long term (current) drug therapy; Z88.5 Allergy status to narcotic agent; Z88.8 Allergy status to other drugs, medicaments and biological substances
CPT/HCPCS: 36415; 80053; 83735; 84439; 84443; 84484; 85025; 93005; 99285; A9270